=== PATIENT | male | born 1950 ===

== ENCOUNTER 2018-10-19 10:55 | Outpatient (CLI) | payer MEDICARE | END 2018-10-19 10:56 | disposition home or self-care (01) | LOC: C.PAT 10:55 | DX: R33.8 Other retention of urine (principal) ==

== ENCOUNTER 2018-10-26 10:28 | Outpatient (CLI) | payer MEDICARE | END 2018-10-26 10:29 | disposition home or self-care (01) | LOC: C.CTH 10:28 ==

== ENCOUNTER 2018-12-03 05:43 | Day surgery (SDC) | payer MEDICARE ==
[2018-12-03 06:40] VITALS: BMI 21.2
[2018-12-03] MEDS ORDERED: cefTRIAXone 1 gm 1 GM/100 ML BAG IVPB ONE (07:59)
[2018-12-03] MEDS ORDERED: Lidocaine 2% Jelly (Uro-Jet) ONE (08:00)
[2018-12-03] MEDS ORDERED: Midazolam 2 MG/2 ML VIAL ONE (08:05)
[2018-12-03] MEDS ORDERED: Propofol 10 mg/ml Inj (20 ML) ONE (08:05)
[2018-12-03] MEDS ORDERED: ePHEDrine 50 mg/ml Inj ONE (08:40)
[2018-12-03] MEDS ORDERED: HYDROmorphone 0.5 mg/0.5 ml ISec IVP PRN (09:37)
[2018-12-03] MEDS ORDERED: Lactated Ringer's 1,000 ML IV SCH (09:45)
[2018-12-03 11:07] VITALS: RESP 18
[2018-12-03 11:25] VITALS: BP 106/68; PULSE 96; TEMP 97.7; O2SAT 97
--- NOTE | 2018-12-03 16:11 | OP ---
PROCEDURE DATE: 12/03/2018 PREOPERATIVE DIAGNOSES: Symptomatic benign prostatic hyperplasia with recurrent urinary retention. POSTOPERATIVE DIAGNOSES: Symptomatic benign prostatic hyperplasia with recurrent urinary retention. PROCEDURE PERFORMED: [employer] Laser of the prostate. SURGEON: James Benitez MD DESCRIPTION OF PROCEDURE: The patient was placed on the operating room table in the dorsal lithotomy position. After he was given general anesthesia, the area of the groin was draped and prepped in a sterile manner. Under direct vision, a laserscope entered into the bladder atraumatically, identified the adenoma that needed to be resected. I deployed a laser fiber and demarcated the distal portion of the resection, which is lateral to the verumontanum. When I went back, he has a rather sizeable middle lobe. Initially unable to see the ureteral orifices, but as I then began to laser the middle lobe down, I could see the ureteral orifices. I used a maximum of 180 young of power. Total joules applied was about 246,000. At the end of the procedure, there was a wide opening from the verumontanum into the bladder itself. Blood loss was less than 10 mL. I inserted at the end of the procedure a 22 three-way Guzman catheter. The initial outflow was clear. The patient was taken from the operating room in good condition. James Benitez MD
== END 2018-12-03 11:27 | disposition home or self-care (01) ==
LOC: C.SDS 05:43
PROVIDERS: ATTEND Urology
DX: N40.1 Benign prostatic hyperplasia with lower urinary tract symptoms (principal); R33.8 Other retention of urine; E11.9 Type 2 diabetes mellitus without complications; I25.10 Atherosclerotic heart disease of native coronary artery without angina pectoris; I10 Essential (primary) hypertension; Z87.891 Personal history of nicotine dependence; Z95.1 Presence of aortocoronary bypass graft
CPT/HCPCS: 52648; 82948; J0696; J1170

== ENCOUNTER 2018-12-04 11:58 | Inpatient (IN) | payer MEDICARE ==
[2018-12-04 11:59] VITALS: BMI 21.2
[2018-12-04 13:20] LABS: BASO % 0.1 % (0.0-2.0); EOS % 0.2 % (0.0-4.0); HEMOGLOBIN 14.1 g/dL (12.0-18.0); LYMPH # 0.4 K/uL (1.0-4.3); MEAN CELL VOLUME 85.3 fL (80.0-94.0); MEAN CORPUSCULAR HEMOGLOBIN 29.1 pg (27.0-31.0); MEAN CORPUSCULAR HGB CONC 34.1 g/dL (33.0-37.0); MEAN PLATELET VOLUME 7.3 fL (7.2-11.7); MONO # 0.2 K/uL (0.0-0.8); NEUT # 16.7 K/uL (1.8-7.0); NEUT % 96.7 % (50.0-75.0); PLATELET COUNT 375 K/uL (130-400); RBC 4.83 Mil/uL (4.40-5.90); RED CELL DISTRIBUTION WIDTH 13.8 % (11.5-14.5); WHITE BLOOD COUNT 17.2 K/uL (4.8-10.8)
[2018-12-04 13:30] LABS: INR 1.3; PROTHROMBIN TIME 14.4 SECONDS (9.7-12.2)
[2018-12-04 13:41] LABS: ALB/GLOB RATIO 1.3 (1.0-2.1); ALBUMIN 4.5 g/dL (3.5-5.0); ALT/SGPT 22 U/L (21-72); AST/SGOT 29 U/L (17-59); BLOOD UREA NITROGEN 18 mg/dL (9-20); CALCIUM 9.4 mg/dl (8.6-10.4); GFR NON-AFRICAN AMERICAN > 60; LIPASE 255 U/L (23-300)
[2018-12-04 13:50] LABS: BANDS 19 % (0-2); LYMPHOCYTE 2 % (20-40); MONOCYTE 2 % (0-10); NEUTROPHIL 77 % (50-75); PLATELET ESTIMATE NORMAL (NORMAL); TOTAL CELLS COUNTED 100
[2018-12-04 13:51] LABS: ANISOCYTOSIS SLIGHT; LARGE PLATELETS PRESENT; POLYCHROMIC SLIGHT
[2018-12-04 14:11] LABS: URINE BACTERIA RARE (<OCC); URINE BILIRUBIN NEGATIVE (NEGATIVE); URINE BLOOD 3+ (NEGATIVE); URINE CLARITY Hazy (Clear); URINE COLOR Amber (YELLOW); URINE GLUCOSE (UA) NORMAL (Normal); URINE LEUKOCYTE ESTERASE 1+ Leu/uL (Negative); URINE PROTEIN 2+ mg/dL (NEGATIVE); URINE UROBILINOGEN NORMAL mg/dL (0.2-1.0)
[2018-12-04] MEDS ORDERED: Iodixanol 320 MG/ML 100 ML BOTTLE IV ONE (14:13)
[2018-12-04] MEDS ORDERED: Sodium Chloride 0.9% 1,000 ML IV ONE (14:34)
--- NOTE | 2018-12-04 14:40 | CT ---
Date of service: 12/04/2018 PROCEDURE: CT Abdomen and Pelvis with contrast HISTORY: lt-sided abd pain. s/p laser prostate sx yesterday COMPARISON: None. TECHNIQUE: Contrast dose: 100 mL Visipaque 320 Radiation dose: Total exam DLP = 349.05 mGy-cm. This CT exam was performed using one or more of the following dose reduction techniques: Automated exposure control, adjustment of the mA and/or kV according to patient size, and/or use of iterative reconstruction technique. FINDINGS: LOWER THORAX: Unremarkable. LIVER: Unremarkable. No gross lesion or ductal dilatation. GALLBLADDER AND BILE DUCTS: Contracted gallbladder. No calcified gallstones. PANCREAS: Unremarkable. No gross lesion or ductal dilatation. SPLEEN: Unremarkable. ADRENALS: Unremarkable. No mass. KIDNEYS AND URETERS: Left upper pole renal cortical cyst, 1.6 cm. There is focal cortical scarring in the lower pole left kidney associated with 2 small cortical cysts. Small cortical cyst upper pole right kidney. No calculus. No hydronephrosis. VASCULATURE: Unremarkable. No aortic aneurysm. There is atherosclerotic calcification of the abdominal aorta. BOWEL: Unremarkable. No obstruction. No gross mural thickening. APPENDIX: Normal appendix. PERITONEUM: Unremarkable. No free fluid. No free air. LYMPH NODES: Unremarkable. No enlarged lymph nodes. BLADDER: Heterogeneous high attenuation material within the urinary bladder likely representing hematuria status post prostate surgery. Guzman catheter balloon. Suspect left-sided bladder calculus, 10 mm diameter. REPRODUCTIVE: Unremarkable prostate. BONES: No acute fracture. OTHER FINDINGS: None. IMPRESSION: Heterogeneous high attenuation urine within urinary bladder consistent with hematuria status post prostate surgery. Suspect bladder calculus. Additional nonacute findings as above.
--- NOTE | 2018-12-04 14:58 | C.PDOC ---
History Of Present Illness 67 y.o. male was sent by urologist for intermittent LT abdominal pain associated with vomiting s/p TURP yesterday. Pt reports x1 episode of nonbilious/nonbloody vomit yesterday and 2 episodes of chills; 1 episode today, 1 episode yesterday. No ABD pain currently in the ED. No reported fever. Denies diarrhea, radiation of abd pain, and any other associated symptoms. Chief Complaint (Nursing): Abdominal Pain History Per: Patient History/Exam Limitations: no limitations Onset/Duration Of Symptoms: Hrs Current Symptoms Are (Timing): Still Present Location Of Pain/Discomfort: LUQ, LLQ Radiation Of Pain To:: None Quality Of Discomfort: "Pain" Associated Symptoms: Chills, Vomiting. denies: Fever, Diarrhea Recent travel outside of the [place]: No Past Medical History Reviewed: Historical Data, Nursing Documentation, Vital Signs Vital Signs: Last Vital Signs Temp 100 F H 12/04/18 14:27 Pulse 88 12/04/18 14:27 Resp 18 12/04/18 14:27 BP 103/54 L 12/04/18 14:27 Pulse Ox 97 12/04/18 14:27 - Medical History PMH: Gastritis, Hypercholesterolemia Surgical History: Endoscopy Family History: States: Unknown Family Hx - Social History Hx Alcohol Use: No Hx Substance Use: No - Immunization History Hx Tetanus Toxoid Vaccination: No Hx Influenza Vaccination: No Hx Pneumococcal Vaccination: No Review Of Systems Except As Marked, All Systems Reviewed And Found Negative. Constitutional: Positive for: Chills. Negative for: Fever Gastrointestinal: Positive for: Vomiting, Abdominal Pain (LT sided. ). Negative for: Diarrhea Physical Exam - Physical Exam Appears: Non-toxic, No Acute Distress Skin: Warm, Dry Head: Atraumatic, Normacephalic Eye(s): bilateral: Normal Inspection Oral Mucosa: Moist Neck: Normal ROM, Supple Chest: Symmetrical, No Deformity Cardiovascular: Rhythm Regular, No Murmur Respiratory: Normal Breath Sounds, No Rales, No Rhonchi, No Wheezing Gastrointestinal/Abdominal: Normal Exam, Soft, No Tenderness, Other ( ingrowin g day gross hematuria in the leg bag.) Extremity: Bilateral: Atraumatic, Normal ROM, Painful To Bear Weight Neurological/Psych: Oriented x3, Normal Speech, Normal Cognition ED Course And Treatment - Laboratory Results Result Diagrams: 12/04/18 13:11 12/04/18 13:11 Lab Results: PT 14.4 SECONDS (9.7-12.2) H 12/04/18 13:11 INR 1.3 12/04/18 13:11 APTT 30.0 SECONDS (21-34) 12/04/18 13:11 Total Bilirubin 1.1 mg/dL (0.2-1.3) 12/04/18 13:11 AST 29 U/L (17-59) 12/04/18 13:11 ALT 22 U/L (21-72) 12/04/18 13:11 Alkaline Phosphatase 88 U/L (38-126) 12/04/18 13:11 Total Protein 8.1 g/dL (6.3-8.3) 12/04/18 13:11 Albumin 4.5 g/dL (3.5-5.0) 12/04/18 13:11 Globulin 3.6 gm/dL (2.2-3.9) 12/04/18 13:11 Albumin/Globulin Ratio 1.3 (1.0-2.1) 12/04/18 13:11 Lipase 255 U/L (23-300) 12/04/18 13:11 Urine Color [place] (YELLOW) 12/04/18 14:00 Urine Clarity Hazy (Clear) 12/04/18 14:00 Urine pH 5.0 (5.0-8.0) 12/04/18 14:00 Ur Specific [place] 1.017 (1.003-1.030) 12/04/18 14:00 Urine Protein 2+ mg/dL (NEGATIVE) H 12/04/18 14:00 Urine Glucose (UA) Normal mg/dL (Normal) 12/04/18 14:00 Urine Ketones Negative mg/dL (NEGATIVE) 12/04/18 14:00 Urine Blood 3+ (NEGATIVE) H 12/04/18 14:00 Urine Nitrate Negative (NEGATIVE) 12/04/18 14:00 Urine Bilirubin Negative (NEGATIVE) 12/04/18 14:00 Urine Urobilinogen Normal mg/dL (0.2-1.0) 12/04/18 14:00 Ur Leukocyte Esterase 1+ [place]/uL (Negative) H 12/04/18 14:00 Urine WBC (Auto) 19 /hpf (0-5) H 12/04/18 14:00 Urine RBC (Auto) 805 /hpf (0-3) H 12/04/18 14:00 Urine Bacteria Rare (<OCC) 12/04/18 14:00 Hyaline Casts 6-10 /lpf (0-2) H 12/04/18 14:00 O2 Sat by Pulse Oximetry: 97 (RA) Pulse Ox Interpretation: Normal - CT Scan/US CT-Abd & Pelv. Other Rad Studies (CT/US): Read By Radiologist, Radiology Report Reviewed CT/US Interpretation: Date of service: 12/04/2018. PROCEDURE: CT Abdomen and Pelvis with contrast. HISTORY: lt-sided abd pain. s/p laser prostate sx yesterday. COMPARISON: None. TECHNIQUE: Contrast dose: 100 mL Visipaque 320. Radiation dose: Total exam DLP = 349.05 mGy-cm. This CT exam was performed using one or more of the following dose reduction techniques: Automated exposure control, adjustment of the mA and/or kV according to patient size, and/or use of iterative reconstruction technique. FINDINGS: LOWER THORAX: Unremarkable. LIVER: Unremarkable. No gross lesion or ductal dilatation. GALLBLADDER AND BILE DUCTS: Contracted gallbladder. No calcified gallstones. PANCREAS: Unremarkable. No gross lesion or ductal dilatation. SPLEEN: Unremarkable. ADRENALS: Unremarkable. No mass. KIDNEYS AND URETERS: Left upper pole renal cortical cyst, 1.6 cm. There is focal cortical scarring in the lower pole left kidney associated with 2 small cortical cysts. Small cortical cyst upper pole right kidney. No calculus. No hydronephrosis. VASCULATURE: Unremarkable. No aortic aneurysm. There is atherosclerotic calcification of the abdominal aorta. BOWEL: Unremarkable. No obstruction. No gross mural thickening. APPENDIX: Normal appendix. PERITONEUM: Unremarkable. No free fluid. No free air. LYMPH NODES: Unremarkable. No enlarged lymph nodes. BLADDER: Heterogeneous high attenuation material within the urinary bladder likely representing hematuria status post prostate surgery. Day catheter balloon. Suspect left-sided bladder calculus, 10 mm diameter. REPRODUCTIVE: Unremarkable prostate. BONES: No acute fracture. OTHER FINDINGS: None. IMPRESSION: Heterogeneous high attenuation urine within urinary bladder consistent with hematuria status post prostate surgery. Suspect bladder calculus. Additional nonacute findings as above. Medical Decision Making Medical Decision Making: Initial plan: -Blood sent. -CT ABD&Pelvis IV Contrast -EKG -Rocephin -Tylenol -Blood culture -Urine culture -Urinalysis Progress/Update: 15:14 Case discussed with . Also discussed the case with Dr. Phillips. Pt given antibiotics as per urology. In-pt admission to medical floor as per Dr. Phillips Disposition - Disposition Disposition: HOSPITALIZED Disposition Time: 16:00 Condition: FAIR - Clinical Impression Clinical Impression: Abdominal pain, Bandemia - Scribe Statement The provider has reviewed the documentation as recorded by the Scribe (Jossy Ceballos)
[2018-12-04 14:59] LABS: VENOUS BLOOD GAS BASE EXCESS -5.5 mmol/L (0.0-2.0); VENOUS BLOOD GAS PCO2 28 mmHg (40-60); VENOUS BLOOD GAS PO2 37 mm/Hg (30-55); VENOUS BLOOD PH 7.41 (7.32-7.43)
[2018-12-04] MEDS ORDERED: cefTRIAXone 2 GM IN NS 2 GM/100 ML BAG IVPB STA (15:03)
[2018-12-04] MEDS ORDERED: cefTRIAXone 2 GM in Sodium Chloride 0.9% 100 ML IVPB SCH (15:15)
[2018-12-04 17:33] VITALS: RESP 20
[2018-12-04] MEDS: (Novolog) Insulin Aspart, Recombinant 100 u/ml 10 ml vial SC SCH (22:06)
[2018-12-05 08:01] LABS: BLOOD UREA NITROGEN 14 mg/dL (9-20); CALCIUM 8.4 mg/dl (8.6-10.4); GFR NON-AFRICAN AMERICAN > 60
[2018-12-05 08:12] LABS: EOS # 0.1 K/uL (0.0-0.7); MEAN PLATELET VOLUME 7.4 fL (7.2-11.7); MONO # 0.8 K/uL (0.0-0.8); NEUT # 11.7 K/uL (1.8-7.0)
[2018-12-05] MEDS: (Novolog) Insulin Aspart, Recombinant 100 u/ml 10 ml vial SC SCH ×4 (08:14→22:13)
--- NOTE | 2018-12-05 08:30 | CP.PCM.HP ---
History of Present Illness - History of Present Illness History of Present Illness: cc; abd pain and chills HPI: 67 y.o. male was sent by urologist for intermittent LT abdominal pain associated with vomiting s/p TURP on 12/03/18. Pt states he has been experiencing left abd pain and chills and was very uncomfortable. +vomited non blood emesis. PT was recently diagnosed with lung cancer. Pt is diabetic and recenlty quit smoking. Pt feels better this AM. Pt reports no chest pain or sob , feels better. PMHX Lung ca recent dx DM Sp turp psh TURP social recently quit tob family mom and dad father had DM meds metformin insulin Present on Admission - Present on Admission Any Indicators Present on Admission: No Review of Systems - Constitutional Constitutional: Chills - EENT Nose/Mouth/Throat: absent: Epistaxis - Cardiovascular Cardiovascular: absent: Chest Pain, Chest Pain with Activity, Edema - Gastrointestinal Gastrointestinal: Abdominal Pain, Vomiting. absent: Change in Bowel Habits, Diarrhea, Melena - Genitourinary Genitourinary: Hematuria Past Patient History - Past Medical History & Family History Past Medical History?: Yes - Past Social History Smoking Status: Vape daily - CARDIAC Hx Hypercholesterolemia: Yes - PULMONARY Hx Respiratory Disorders: Yes Other/Comment: lung mass - NEUROLOGICAL Hx Neurological Disorder: No - HEENT Hx HEENT Problems: Yes Hx Cataracts: Yes (both eyes) - ENDOCRINE/METABOLIC Hx Endocrine Disorders: Yes Hx Diabetes Mellitus Type 2: Yes - INTEGUMENTARY Hx Dermatological Problems: No - MUSCULOSKELETAL/RHEUMATOLOGICAL Hx Musculoskeletal Disorders: Yes Hx Back Pain: Yes Hx Falls: No - GASTROINTESTINAL Hx Gastritis: Yes - GENITOURINARY/GYNECOLOGICAL Hx Genitourinary Disorders: Yes Hx Prostate Problems: Yes (IMFLAMATION OF PROSTATE) Hx Urinary Tract Infection: Yes - PSYCHIATRIC Hx Substance Use: No - SURGICAL HISTORY Hx Surgeries: Yes Hx Cataract Extraction: Yes Hx Cardiac Catheterization: Yes (2011) Hx Eye Surgery: Yes (CATARACT BOTH EYES) Hx Open Heart Surgery: Yes (CLOGGED ARTERIES/VEINS) Other/Comment: OPEN HEART-2011. bronchoscopy w/ bx [id number]. PROSTATE SX 11/2018 - ANESTHESIA Hx Anesthesia: Yes Hx Anesthesia Reactions: No Hx Malignant Hyperthermia: No Meds Allergies/Adverse Reactions: Allergies Allergy/AdvReac Type Severity Reaction Status Date / Time No Known Allergies Allergy Verified 12/04/18 12:10 Physical Exam - Constitutional Appears: Non-toxic - Eye Exam Eye Exam: Normal appearance - ENT Exam ENT Exam: Mucous Membranes Moist - Respiratory Exam Respiratory Exam: Clear to Auscultation Bilateral - Cardiovascular Exam Cardiovascular Exam: REGULAR RHYTHM, RRR. absent: JVD - GI/Abdominal Exam GI & Abdominal Exam: Normal Bowel Sounds. absent: Guarding, Mass - Neurological Exam Neurological exam: CN II-XII Intact, Normal Gait, Oriented x3 - Psychiatric Exam Psychiatric exam: Normal Affect, Normal Mood - Skin Skin Exam: Dry, Normal Color Results - Vital Signs Recent Vital Signs: Last Vital Signs Temp 98.0 F 12/05/18 08:02 Pulse 90 12/05/18 08:02 Resp 20 12/05/18 08:02 BP 101/65 12/05/18 08:02 Pulse Ox 97 12/05/18 08:02 - Labs Result Diagrams: 12/04/18 13:11 12/05/18 07:35 Labs: Laboratory Results - last 24 hr 12/04/18 12/04/18 12/04/18 13:11 13:11 13:11 WBC 17.2 H D RBC 4.83 Hgb 14.1 Hct 41.2 MCV 85.3 D MCH 29.1 MCHC 34.1 RDW 13.8 Plt Count 375 MPV 7.3 Neut % (Auto) 96.7 H Lymph % (Auto) 2.0 L [place] % (Auto) 1.0 Eos % (Auto) 0.2 Baso % (Auto) 0.1 Neut # (Auto) 16.7 H Lymph # (Auto) 0.4 L [place] # (Auto) 0.2 Eos # (Auto) 0.0 Baso # (Auto) 0.0 Neutrophils % (Manual) 77 H Band Neutrophils % 19 H* Lymphocytes % (Manual) 2 L Monocytes % (Manual) 2 Platelet Estimate Normal Large Platelets Present Polychromasia Slight Anisocytosis (manual) Slight PT 14.4 H INR 1.3 APTT 30.0 pO2 VBG pH VBG pCO2 VBG HCO3 VBG Total CO2 VBG O2 Sat (Calc) VBG Base Excess VBG Potassium Glucose Lactate Sodium 130 L Potassium 4.7 Chloride 96 L Carbon Dioxide 20 L Anion Gap 19 BUN 18 Creatinine 1.0 Est GFR ( Amer) > 60 Est GFR (Non-Af Amer) > 60 POC Glucose (mg/dL) Random Glucose 199 H Calcium 9.4 Phosphorus Magnesium Total Bilirubin 1.1 AST 29 ALT 22 Alkaline Phosphatase 88 Total Protein 8.1 Albumin 4.5 Globulin 3.6 Albumin/Globulin Ratio 1.3 Lipase 255 Venous Blood Potassium Urine Color Urine Clarity Urine pH Ur Specific [place] Urine Protein Urine Glucose (UA) Urine Ketones Urine Blood Urine Nitrate Urine Bilirubin Urine Urobilinogen Ur Leukocyte Esterase Urine WBC (Auto) Urine RBC (Auto) Urine Bacteria Hyaline Casts 12/04/18 12/04/18 12/04/18 14:00 14:55 21:36 WBC RBC Hgb Hct MCV MCH MCHC RDW Plt Count MPV Neut % (Auto) Lymph % (Auto) [place] % (Auto) Eos % (Auto) Baso % (Auto) Neut # (Auto) Lymph # (Auto) [place] # (Auto) Eos # (Auto) Baso # (Auto) Neutrophils % (Manual) Band Neutrophils % Lymphocytes % (Manual) Monocytes % (Manual) Platelet Estimate Large Platelets Polychromasia Anisocytosis (manual) PT INR APTT pO2 37 VBG pH 7.41 VBG pCO2 28 L VBG HCO3 19.9 VBG Total CO2 18.6 L VBG O2 Sat (Calc) 77.7 H VBG Base Excess -5.5 L VBG Potassium 3.5 L Glucose 285 H Lactate 1.7 Sodium 133.0 Potassium Chloride 105.0 Carbon Dioxide Anion Gap BUN Creatinine Est GFR ( Amer) Est GFR (Non-Af Amer) POC Glucose (mg/dL) 344 H Random Glucose Calcium Phosphorus Magnesium Total Bilirubin AST ALT Alkaline Phosphatase Total Protein Albumin Globulin Albumin/Globulin Ratio Lipase Venous Blood Potassium 3.5 L Urine Color [place] Urine Clarity Hazy Urine pH 5.0 Ur Specific [place] 1.017 Urine Protein 2+ H Urine Glucose (UA) Normal Urine Ketones Negative Urine Blood 3+ H Urine Nitrate Negative Urine Bilirubin Negative Urine Urobilinogen Normal Ur Leukocyte Esterase 1+ H Urine WBC (Auto) 19 H Urine RBC (Auto) 805 H Urine Bacteria Rare Hyaline Casts 6-10 H 12/05/18 12/05/18 07:35 07:37 WBC RBC Hgb Hct MCV MCH MCHC RDW Plt Count MPV Neut % (Auto) Lymph % (Auto) [place] % (Auto) Eos % (Auto) Baso % (Auto) Neut # (Auto) Lymph # (Auto) [place] # (Auto) Eos # (Auto) Baso # (Auto) Neutrophils % (Manual) Band Neutrophils % Lymphocytes % (Manual) Monocytes % (Manual) Platelet Estimate Large Platelets Polychromasia Anisocytosis (manual) PT INR APTT pO2 VBG pH VBG pCO2 VBG HCO3 VBG Total CO2 VBG O2 Sat (Calc) VBG Base Excess VBG Potassium Glucose Lactate Sodium 133 Potassium 4.4 Chloride 101 Carbon Dioxide 23 Anion Gap 14 BUN 14 Creatinine 0.8 Est GFR ( Amer) > 60 Est GFR (Non-Af Amer) > 60 POC Glucose (mg/dL) 336 H Random Glucose 325 H D Calcium 8.4 L Phosphorus 2.6 Magnesium 1.8 Total Bilirubin AST ALT Alkaline Phosphatase Total Protein Albumin Globulin Albumin/Globulin Ratio Lipase Venous Blood Potassium Urine Color Urine Clarity Urine pH Ur Specific [place] Urine Protein Urine Glucose (UA) Urine Ketones Urine Blood Urine Nitrate Urine Bilirubin Urine Urobilinogen Ur Leukocyte Esterase Urine WBC (Auto) Urine RBC (Auto) Urine Bacteria Hyaline Casts Assessment & Plan - Assessment and Plan (Free Text) Assessment: sp TURP with chils and bandemia urosepsis uncontrolled DM admit Ivf abx blood and urine culture adjust insulin\ dvt and gi prophylaxis URologyst aware consulted - Date & Time Date: 12/04/18
[2018-12-05 08:35] LABS: BASO % 0.2 % (0.0-2.0); EOS % 0.7 % (0.0-4.0); LYMPH # 0.8 K/uL (1.0-4.3); LYMPH % 5.9 % (20.0-40.0); MEAN CELL VOLUME 85.5 fL (80.0-94.0); MEAN CORPUSCULAR HEMOGLOBIN 29.3 pg (27.0-31.0); MEAN CORPUSCULAR HGB CONC 34.2 g/dL (33.0-37.0); MONO % 5.9 % (0.0-10.0); NEUT % 87.3 % (50.0-75.0); PLATELET COUNT 294 K/uL (130-400); RBC 3.98 Mil/uL (4.40-5.90); RED CELL DISTRIBUTION WIDTH 14.1 % (11.5-14.5); WHITE BLOOD COUNT 13.4 K/uL (4.8-10.8)
--- NOTE | 2018-12-05 08:37 | CP.PCM.PN ---
Subjective - Date & Time of Evaluation Date of Evaluation: 12/05/18 Time of Evaluation: 08:37 - Subjective Subjective: Pt is better this AM no pain wondering if he is going home having breadfast Objective - Vital Signs/Intake and Output Vital Signs (last 24 hours): Temp Pulse Resp BP Pulse Ox 98.0 F 90 20 101/65 97 12/05/18 08:02 12/05/18 08:02 12/05/18 08:02 12/05/18 08:02 12/05/18 08:02 Intake and Output: 12/05/18 12/05/18 06:59 18:59 Intake Total 1450 Output Total 1400 Balance 50 - Medications Medications: Current Medications Acetaminophen (Tylenol 325mg Tab) 650 mg PO Q6 PRN PRN Reason: Fever >100.4 F Enoxaparin Sodium (Lovenox) 40 mg SC DAILY [facility] Ceftriaxone Sodium 1 gm/ (Sodium Chloride) 100 mls @ 100 mls/hr IVPB DAILY [facility]; Protocol Sodium Chloride (Sodium Chloride 0.9%) 1,000 mls @ 75 mls/hr IV .[id number] [facility] Last Admin: 12/05/18 00:00 Dose: 75 mls/hr Insulin Aspart (Novolog) 0 unit SC ACHS [facility]; Protocol Last Admin: 12/05/18 08:14 Dose: 6 unit Insulin Glargine (Lantus) 15 unit SC DAILY [facility] Metformin HCl (Glucophage) 1,000 mg PO BIDPC [facility] Last Admin: 12/05/18 08:14 Dose: 1,000 mg Pantoprazole Sodium (Protonix Ec Tab) 40 mg PO DAILY [facility] Rosuvastatin Calcium (Crestor) 10 mg PO HS [facility] Last Admin: 12/04/18 22:05 Dose: 10 mg Sitagliptin Phosphate (Januvia) 100 mg PO DAILY [facility] - Labs Labs: 12/04/18 13:11 12/05/18 07:35 PT 14.4 SECONDS (9.7-12.2) H 12/04/18 13:11 INR 1.3 12/04/18 13:11 APTT 30.0 SECONDS (21-34) 12/04/18 13:11 - Constitutional Appears: Well, Non-toxic - ENT Exam ENT Exam: Mucous Membranes Moist - Respiratory Exam Respiratory Exam: Clear to Ausculation Bilateral - Cardiovascular Exam Cardiovascular Exam: REGULAR RHYTHM, RRR, +S1, +S2. absent: JVD - GI/Abdominal Exam GI & Abdominal Exam: Soft, Normal Bowel Sounds. absent: Tenderness - Psychiatric Exam Psychiatric exam: Normal Affect - Skin Skin Exam: Dry, Intact Assessment and Plan - Assessment and Plan (Free Text) Assessment: urosepsis cont rocephin awaing culture hyponatremia improving on NS incrased sugars dc glimepiride add janvuia and lantus
[2018-12-05 09:09] LABS: HEMOGLOBIN 11.7 g/dL (12.0-18.0)
[2018-12-05] MEDS: (Lantus) Insulin Glargine, Recombinant SC SCH (09:46)
[2018-12-05] MEDS: Pantoprazole 40 mg EC Tab PO SCH (09:46)
[2018-12-05] MEDS: Enoxaparin 40 mg Syringe SC SCH (09:47)
[2018-12-05 11:00] LABS: BANDS 5 % (0-2); LYMPHOCYTE 3 % (20-40); MONOCYTE 9 % (0-10); NEUTROPHIL 83 % (50-75); PLATELET ESTIMATE NORMAL (NORMAL); TOTAL CELLS COUNTED 100
[2018-12-05] MEDS: Sodium Chloride 0.9% 1,000 ML IV SCH ×2 (14:05)
[2018-12-05] MEDS: POLYETHYLENE GLYCOL 3350 17 GM/Dose PACKET PO SCH (22:13)
[2018-12-06] MEDS: Sodium Chloride 0.9% 1,000 ML IV SCH ×2 (03:00→18:14)
[2018-12-06 06:33] LABS: BLOOD UREA NITROGEN 12 mg/dL (9-20); GFR NON-AFRICAN AMERICAN > 60
[2018-12-06 07:15] LABS: HEMOGLOBIN 12.3 g/dL (12.0-18.0); MEAN CELL VOLUME 85.5 fL (80.0-94.0); MEAN CORPUSCULAR HEMOGLOBIN 28.5 pg (27.0-31.0); MEAN CORPUSCULAR HGB CONC 33.4 g/dL (33.0-37.0); MEAN PLATELET VOLUME 7.5 fL (7.2-11.7); RBC 4.29 Mil/uL (4.40-5.90); WHITE BLOOD COUNT 11.1 K/uL (4.8-10.8)
[2018-12-06] MEDS: (Novolog) Insulin Aspart, Recombinant 100 u/ml 10 ml vial SC SCH ×3 (08:27→17:55)
[2018-12-06] MEDS: Enoxaparin 40 mg Syringe SC SCH (10:01)
[2018-12-06] MEDS: POLYETHYLENE GLYCOL 3350 17 GM/Dose PACKET PO SCH (10:01)
[2018-12-06] MEDS: Pantoprazole 40 mg EC Tab PO SCH (10:01)
[2018-12-06] MEDS: (Lantus) Insulin Glargine, Recombinant SC SCH (10:02)
--- NOTE | 2018-12-06 13:10 | CP.PCM.PN ---
Subjective - Date & Time of Evaluation Date of Evaluation: 12/06/18 Time of Evaluation: 13:09 - Subjective Subjective: urology. POD 3 urine clear day removed now . Elevated glucose remains rehan issue. Urine and blood c&s neg. Objective - Vital Signs/Intake and Output Vital Signs (last 24 hours): Temp Pulse Resp BP Pulse Ox 98.6 F 81 20 147/82 99 12/06/18 07:00 12/06/18 07:00 12/06/18 07:00 12/06/18 07:00 12/06/18 07:00 Intake and Output: 12/06/18 12/06/18 06:59 18:59 Intake Total 1050 Output Total 600 Balance 450 - Medications Medications: Current Medications Acetaminophen (Tylenol 325mg Tab) 650 mg PO Q6 PRN PRN Reason: Fever >100.4 F Docusate Sodium (Colace) 100 mg PO BID [facility] Last Admin: 12/06/18 10:01 Dose: 100 mg Enoxaparin Sodium (Lovenox) 40 mg SC DAILY [facility] Last Admin: 12/06/18 10:01 Dose: 40 mg Ceftriaxone Sodium 1 gm/ (Sodium Chloride) 100 mls @ 100 mls/hr IVPB DAILY [facility]; Protocol Last Admin: 12/06/18 10:12 Dose: 100 mls/hr Sodium Chloride (Sodium Chloride 0.9%) 1,000 mls @ 75 mls/hr IV .[id number] [facility] Last Admin: 12/06/18 03:00 Dose: 75 mls/hr Insulin Aspart (Novolog) 0 unit SC ACHS [facility]; Protocol Last Admin: 12/06/18 12:34 Dose: 4 unit Insulin Glargine (Lantus) 15 unit SC DAILY [facility] Last Admin: 12/06/18 10:02 Dose: 15 units Metformin HCl (Glucophage) 1,000 mg PO BIDPC [facility] Last Admin: 12/06/18 08:27 Dose: 1,000 mg Pantoprazole Sodium (Protonix Ec Tab) 40 mg PO DAILY [facility] Last Admin: 12/06/18 10:01 Dose: 40 mg Polyethylene Glycol (Miralax) 17 gm PO DAILY [facility] Last Admin: 12/06/18 10:01 Dose: 17 gm Rosuvastatin Calcium (Crestor) 10 mg PO HS [facility] Last Admin: 04/28/19 22:02 Dose: 10 mg Sitagliptin Phosphate (Januvia) 100 mg PO DAILY [facility] Last Admin: 12/06/18 10:07 Dose: 100 mg - Labs Labs: 12/06/18 06:14 12/06/18 06:14 PT 14.4 SECONDS (9.7-12.2) H 12/04/18 13:11 INR 1.3 12/04/18 13:11 APTT 30.0 SECONDS (21-34) 12/04/18 13:11
[2018-12-06 17:05] VITALS: BP 120/78; PULSE 84; TEMP 98.1; O2SAT 100
--- NOTE | 2018-12-06 18:23 | CP.PCM.DIS ---
Provider - Provider Date of Admission: 12/04/18 15:01 Attending physician: Starla Phillips MD Consults: 12/04/18 15:01 Urology Consult Routine Comment: Consulting Provider: James Benitez Consulting Physician: James Benitez Reason for Consult: bandemia s/p TURP Time Spent in preparation of Discharge (in minutes): 30 Hospital Course - Lab Results Lab Results: Micro Results 12/04/18 13:00 Blood Blood Culture - Preliminary NO GROWTH AFTER 48 HOURS 12/04/18 12:26 Blood Blood Culture - Preliminary NO GROWTH AFTER 48 HOURS 12/04/18 14:00 Urine Random Urine Culture - Final No Growth (<1,000 CFU/ML) Most Recent Lab Values WBC 11.1 K/uL (4.8-10.8) H 12/06/18 06:14 RBC 4.29 Mil/uL (4.40-5.90) L 12/06/18 06:14 Hgb 12.3 g/dL (12.0-18.0) 12/06/18 06:14 Hct 36.7 % (35.0-51.0) 12/06/18 06:14 MCV 85.5 fL (80.0-94.0) 12/06/18 06:14 MCH 28.5 pg (27.0-31.0) 12/06/18 06:14 MCHC 33.4 g/dL (33.0-37.0) 12/06/18 06:14 RDW 14.0 % (11.5-14.5) 12/06/18 06:14 Plt Count 323 K/uL (130-400) 12/06/18 06:14 MPV 7.5 fL (7.2-11.7) 12/06/18 06:14 Neut % (Auto) 87.3 % (50.0-75.0) H 12/05/18 07:35 Lymph % (Auto) 5.9 % (20.0-40.0) L 12/05/18 07:35 Leon % (Auto) 5.9 % (0.0-10.0) 12/05/18 07:35 Eos % (Auto) 0.7 % (0.0-4.0) 12/05/18 07:35 Baso % (Auto) 0.2 % (0.0-2.0) 12/05/18 07:35 Neut # (Auto) 11.7 K/uL (1.8-7.0) H 12/05/18 07:35 Lymph # (Auto) 0.8 K/uL (1.0-4.3) L 12/05/18 07:35 Leon # (Auto) 0.8 K/uL (0.0-0.8) 12/05/18 07:35 Eos # (Auto) 0.1 K/uL (0.0-0.7) 12/05/18 07:35 Baso # (Auto) 0.0 K/uL (0.0-0.2) 12/05/18 07:35 Neutrophils % (Manual) 83 % (50-75) H 12/05/18 07:35 Band Neutrophils % 5 % (0-2) H 12/05/18 07:35 Lymphocytes % (Manual) 3 % (20-40) L 12/05/18 07:35 Monocytes % (Manual) 9 % (0-10) 12/05/18 07:35 Platelet Estimate Normal (NORMAL) 12/05/18 07:35 Large Platelets Present 12/04/18 13:11 RBC Morphology Normal 12/05/18 07:35 Polychromasia Slight 12/04/18 13:11 Anisocytosis (manual) Slight 12/04/18 13:11 PT 14.4 SECONDS (9.7-12.2) H 12/04/18 13:11 INR 1.3 12/04/18 13:11 APTT 30.0 SECONDS (21-34) 12/04/18 13:11 pO2 37 mm/Hg (30-55) 12/04/18 14:55 VBG pH 7.41 (7.32-7.43) 12/04/18 14:55 VBG pCO2 28 mmHg (40-60) L 12/04/18 14:55 VBG HCO3 19.9 mmol/L 12/04/18 14:55 VBG Total CO2 18.6 mmol/L (22-28) L 12/04/18 14:55 VBG O2 Sat (Calc) 77.7 % (40-65) H 12/04/18 14:55 VBG Base Excess -5.5 mmol/L (0.0-2.0) L 12/04/18 14:55 VBG Potassium 3.5 mmol/L (3.6-5.2) L 12/04/18 14:55 Sodium 133.0 mmol/l (132-148) 12/04/18 14:55 Chloride 105.0 mmol/L (98-107) 12/04/18 14:55 Glucose 285 mg/dl (75-110) H 12/04/18 14:55 Lactate 1.7 mmol/L (0.7-2.1) 12/04/18 14:55 Sodium 135 mmol/L (132-148) 12/06/18 06:14 Potassium 4.6 mmol/L (3.6-5.2) 12/06/18 06:14 Chloride 103 mmol/L (98-107) 12/06/18 06:14 Carbon Dioxide 23 mmol/L (22-30) 12/06/18 06:14 Anion Gap 14 (10-20) 12/06/18 06:14 BUN 12 mg/dL (9-20) 12/06/18 06:14 Creatinine 0.8 mg/dL (0.8-1.5) 12/06/18 06:14 Est GFR ( Amer) > 60 12/06/18 06:14 Est GFR (Non-Af Amer) > 60 12/06/18 06:14 POC Glucose (mg/dL) 155 mg/dL (65-110) H 12/06/18 16:36 Random Glucose 218 mg/dL (75-110) H D 12/06/18 06:14 Calcium 9.0 mg/dl (8.6-10.4) 12/06/18 06:14 Phosphorus 2.6 mg/dL (2.5-4.5) 12/05/18 07:35 Magnesium 1.8 mg/dL (1.6-2.3) 12/05/18 07:35 Total Bilirubin 1.1 mg/dL (0.2-1.3) 12/04/18 13:11 AST 29 U/L (17-59) 12/04/18 13:11 ALT 22 U/L (21-72) 12/04/18 13:11 Alkaline Phosphatase 88 U/L (38-126) 12/04/18 13:11 Total Protein 8.1 g/dL (6.3-8.3) 12/04/18 13:11 Albumin 4.5 g/dL (3.5-5.0) 12/04/18 13:11 Globulin 3.6 gm/dL (2.2-3.9) 12/04/18 13:11 Albumin/Globulin Ratio 1.3 (1.0-2.1) 12/04/18 13:11 Lipase 255 U/L (23-300) 12/04/18 13:11 Venous Blood Potassium 3.5 mmol/L (3.6-5.2) L 12/04/18 14:55 Urine Color Tamar (YELLOW) 12/04/18 14:00 Urine Clarity Hazy (Clear) 12/04/18 14:00 Urine pH 5.0 (5.0-8.0) 12/04/18 14:00 Ur Specific Industry 1.017 (1.003-1.030) 12/04/18 14:00 Urine Protein 2+ mg/dL (NEGATIVE) H 12/04/18 14:00 Urine Glucose (UA) Normal mg/dL (Normal) 12/04/18 14:00 Urine Ketones Negative mg/dL (NEGATIVE) 12/04/18 14:00 Urine Blood 3+ (NEGATIVE) H 12/04/18 14:00 Urine Nitrate Negative (NEGATIVE) 12/04/18 14:00 Urine Bilirubin Negative (NEGATIVE) 12/04/18 14:00 Urine Urobilinogen Normal mg/dL (0.2-1.0) 12/04/18 14:00 Ur Leukocyte Esterase 1+ Estrellita/uL (Negative) H 12/04/18 14:00 Urine WBC (Auto) 19 /hpf (0-5) H 12/04/18 14:00 Urine RBC (Auto) 805 /hpf (0-3) H 12/04/18 14:00 Urine Bacteria Rare (<OCC) 12/04/18 14:00 Hyaline Casts 6-10 /lpf (0-2) H 12/04/18 14:00 - Hospital Course Hospital Course: Pt was admitted, hydrated wih NS ( hyponatremia intially) pain treated and day catherter removed by uro. PT had bandemia but neg BC and UC. pt was treated with IV rocephin Sugars were addressed with addition of Januvia and insulin increase Discharge Exam - Eye Exam Eye Exam: Normal appearance - ENT Exam ENT Exam: Mucous Membranes Moist - Respiratory Exam Respiratory Exam: Clear to PA & Lateral - Cardiovascular Exam Cardiovascular Exam: REGULAR RHYTHM, RRR, +S1, +S2. absent: JVD - GI/Abdominal Exam GI & Abdominal Exam: Normal Bowel Sounds. absent: Tenderness - Neurological Exam Neurological exam: CN II-XII Intact - Skin Skin Exam: Dry, Intact Discharge Plan - Discharge Medications Prescriptions: SITagliptin [Januvia] 100 mg PO DAILY 90 Days tab - Follow Up Plan Condition: FAIR Disposition: HOME/ ROUTINE
--- NOTE | 2018-12-07 13:05 | CARD ---
APPROVED REPORT Date of service: 12/04/2018 EKG Measurement Heart [id number] <Conclusion> Sinus tachycardia Otherwise normal ECG
== END 2018-12-06 18:54 | disposition home or self-care (01) | DRG 392 ==
LOC: C.ER 11:58 → C.9E 15:01 → C.3T 16:05
PROVIDERS: ADMIT Internal Medicine; ATTEND Internal Medicine
DX: R10.32 Left lower quadrant pain (principal); E87.1 Hypo-osmolality and hyponatremia; D72.825 Bandemia; E11.65 Type 2 diabetes mellitus with hyperglycemia